=== PATIENT | male | born 1960 | race Caucasian/White ===

== ENCOUNTER 2019-05-24 09:23 | Emergency (ER) | payer OTHER ==
[~2019-05-24] VITALS: Ht 182.8 cm; Wt 147.4 kg
[~2019-05-24 09:23] MED LIST: CARVEDILOL25 MG PO; Motrin,Rufen800 MG PO; NEURONTIN300 MG PO; NORVASC5 MG PO; PAXIL30 M2 PO; PRAVACHOL40 MG PO; TRAZODONE100 MG PO; ZOFRAN4 MG PO
[2019-05-24 10:02] LABS: BASO # 0.1 10*3/uL (0.0-0.1); BASO % 0.9 % (0.0-1.0); EOS # 0.1 10*3/uL (0.0-0.4); EOS % 1.2 % (1.0-4.0); HEMATOCRIT 48.4 % (42.0-52.0); HEMOGLOBIN 15.8 g/dl (14.0-18.0); LYMPH # 2.1 10*3/uL (1.3-4.4); LYMPH % 18.8 % (27.0-41.0); MEAN CELL VOLUME 91.5 fl (80.0-94.0); MEAN CORPUSCULAR HGB 29.9 pg (27.0-31.0); MEAN CORPUSCULAR HGB CONC 32.6 g/dl (33.0-37.0); MEAN PLATELET VOLUME 9.6 fl (9.6-12.3); MONO % 9.3 % (3.0-9.0); NEUT # 7.7 10*3/uL (2.3-7.9); NEUT % 69.3 % (47.0-73.0); PLATELET COUNT AUTOMATED 262 10*3/uL (130-400); RED BLOOD COUNT 5.29 10*6/uL (4.50-5.90); RED CELL DISTRI WIDTH 13.7 % (0-14.5); WHITE BLOOD COUNT 11.1 10*3/uL (4.8-10.8)
[2019-05-24 10:18] LABS: ALBUMIN 3.2 gm/dl (3.1-4.5); ALKALINE PHOSPHATASE 54 U/L (45-117); BUN 11 mg/dl (7-24); CHLORIDE 107 mmol/L (98-107); CREATININE 0.85 mg/dL (0.70-1.30); POTASSIUM 3.9 mmol/L (3.5-5.1); SGOT/AST 8 IU/L (3-35); SGPT/ALT 13 U/L (12-78); SODIUM 137 mmol/L (136-145); TOTAL PROTEIN 7.6 gm/dL (6.4-8.2)
[2019-05-24 10:45] VITALS: BP 112/72
== END 2019-05-24 11:07 | disposition short-term general hospital (02) ==
LOC: ED 09:23
PROVIDERS: Emergency Medicine
DX: K92.2 Gastrointestinal hemorrhage, unspecified (principal); Z79.899 Other long term (current) drug therapy

== ENCOUNTER → 2021-10-12 | Outpatient (CLI) | payer OTHER | END | disposition home or self-care (01) | LOC: RAD 10:24 | PROVIDERS: ATTEND Family Medicine | DX: M16.0 Bilateral primary osteoarthritis of hip (principal); M25.752 Osteophyte, left hip; M25.751 Osteophyte, right hip; M25.852 Other specified joint disorders, left hip; M25.851 Other specified joint disorders, right hip ==

== ENCOUNTER → 2024-07-25 | Outpatient (CLI) | payer MEDICARE ==
[~2024-07-25] MED LIST changes: +DULOXETINE HCL30 MG PO; +DULOXETINE HCL60 MG PO; +LEVOFLOXACIN500 MG PO; +MIRTAZAPINE30 M2 PO; +PANTOPRAZOLE SO40 MG PO; +PERCOCET 10-321 EACH PO; +SENEXON-S 50-81 EACH PO
== END | disposition home or self-care (01) ==
LOC: RAD 12:51
PROVIDERS: ATTEND Family Medicine
DX: J98.11 Atelectasis (principal); J44.9 Chronic obstructive pulmonary disease, unspecified; R53.83 Other fatigue; R06.02 Shortness of breath

== ENCOUNTER → 2024-08-05 | Outpatient (CLI) | payer MEDICARE ==
[~2024-08-05] MED LIST changes: +IOHEXOL 300 MG/ML 100 ML VIAL IV ONE
== END | disposition home or self-care (01) ==
LOC: CT 02:27
PROVIDERS: ATTEND Family Medicine
DX: C34.31 Malignant neoplasm of lower lobe, right bronchus or lung (principal); J90 Pleural effusion, not elsewhere classified; J98.11 Atelectasis; J34.9 Unspecified disorder of nose and nasal sinuses

== ENCOUNTER → 2024-09-26 | Outpatient (CLI) | payer MEDICARE ==
[~2024-09-26] MED LIST changes: -IOHEXOL 300 MG/ML 100 ML VIAL IV ONE
[2024-09-26 08:36] LABS: MEAN CELL VOLUME 89.8 fl (80.0-94.0); MEAN CORPUSCULAR HGB 28.1 pg (27.0-31.0); MEAN PLATELET VOLUME 8.5 fl (9.6-12.3); NUCLEATED RED BLOOD CELL 0.0 % (0.0-0.0); NUCLEATED RED BLOOD CELL 0.0 10*3/uL (0.0-0.0); PLATELET COUNT AUTOMATED 279.0 10*3/uL (130-400); RED CELL DISTRI WIDTH 15.8 % (0-14.5)
[2024-09-26 09:34] LABS: BUN 11 mg/dl (9-23)
[2024-09-26 09:40] LABS: SGPT/ALT < 7 U/L (5-49)
== END | disposition home or self-care (01) ==
LOC: LAB 08:08
PROVIDERS: ATTEND Family Medicine
DX: J84.9 Interstitial pulmonary disease, unspecified (principal); R50.9 Fever, unspecified; R53.83 Other fatigue

== ENCOUNTER → 2024-10-31 | Outpatient (CLI) | payer MEDICARE ==
[~2024-10-31] MED LIST changes: +AMOX-CLAV 875-1 EACH PO; +MAGNESIUM OXID400 MG PO; +Vibra-Tab100 MG PO
[2024-10-31 08:25] LABS: MEAN CELL VOLUME 88.4 fl (80.0-94.0); MEAN CORPUSCULAR HGB 27.8 pg (27.0-31.0); MEAN PLATELET VOLUME 8.6 fl (9.6-12.3); NUCLEATED RED BLOOD CELL 0.0 % (0.0-0.0); NUCLEATED RED BLOOD CELL 0.0 10*3/uL (0.0-0.0); PLATELET COUNT AUTOMATED 220.0 10*3/uL (130-400); RED CELL DISTRI WIDTH 15.3 % (0-14.5)
[2024-10-31 09:02] LABS: BUN 13 mg/dl (9-23)
[2024-10-31 09:24] LABS: SGPT/ALT < 7 U/L (5-49)
== END | disposition home or self-care (01) ==
LOC: LAB 07:56
PROVIDERS: ATTEND Family Medicine
DX: J98.4 Other disorders of lung (principal); R06.02 Shortness of breath; R53.83 Other fatigue; D72.829 Elevated white blood cell count, unspecified

== ENCOUNTER → 2024-12-12 | Outpatient (CLI) | payer MEDICARE ==
[2024-12-12 10:21] LABS: MEAN CELL VOLUME 89.6 fl (80.0-94.0); MEAN CORPUSCULAR HGB 27.8 pg (27.0-31.0); MEAN PLATELET VOLUME 8.7 fl (9.6-12.3); NUCLEATED RED BLOOD CELL 0.0 % (0.0-0.0); NUCLEATED RED BLOOD CELL 0.0 10*3/uL (0.0-0.0); PLATELET COUNT AUTOMATED 238.0 10*3/uL (130-400); RED CELL DISTRI WIDTH 15.2 % (0-14.5)
[2024-12-12 10:57] LABS: BUN 12 mg/dl (9-23); LDL CHOLESTEROL 112 mg/dL (9-159); SGPT/ALT < 7 U/L (5-49)
[2024-12-12 11:01] LABS: VITAMIN D, 25-HYDROXY 29.1 ng/mL (30-100)
== END | disposition home or self-care (01) ==
LOC: LAB 09:52
PROVIDERS: ATTEND Family Medicine
DX: J43.8 Other emphysema (principal); R06.02 Shortness of breath; I10 Essential (primary) hypertension; E78.00 Pure hypercholesterolemia, unspecified; F41.1 Generalized anxiety disorder; E74.00 Glycogen storage disease, unspecified; G47.00 Insomnia, unspecified; R05.9 Cough, unspecified; E55.9 Vitamin D deficiency, unspecified